=== PATIENT | male | born 1990 | race Caucasian/White ===

== ENCOUNTER 2016-04-06 19:34 | Emergency (ER) | payer SELFPAY ==
[~2016-04-06] VITALS: Ht 195.6 cm; Wt 81.6 kg
[~2016-04-06 19:34] MED LIST: CIPR500T78 PO; CPR500T PO; HYDR-1231 PO; HYDR1TAB PO; NAPR550T PO; ONDA8TAB13 PO; PHEN200T27 PO; PRM25T PO; TMSL.4C PO
--- OUTSIDE RECORDS SUMMARY | 2016-04-06 19:39 | XMS REPORT ---
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 Info Not Available Non Drug Allergy Problems Problem Type Condition Code Onset Dates Condition Status Problem Hematochezia 578.1 Active Problem Alcohol abuse 305.00 Active Problem Alcoholism F10.20 Active Assessment Alcoholism F10.20 Active Medications No Known Medications Procedures Procedure Coding System Code Date Office Visit, Est Pt., Level 3 CPT-4 30345 June 12, 2015 Vital Signs Date/Time: June 12, 2015 Temperature 96.9 F Weight 184.7 lbs Height 69.0 in BMI 27.27 Index Blood Pressure Diastolic 70 mmHg Blood Pressure Systolic 112 mmHg Cardiac Monitoring Heart Rate 88 bpm Results No Known Results Summary Purpose eClinicalWorks Submission
[2016-04-06] MEDS ORDERED: TRAM-42 PO (22:19)
[2016-04-06] MEDS ORDERED: RX-TRAMADOL 50 MG (ULTRAM) TAB PPK#4 PO STA (22:19)
[2016-04-06] MEDS ORDERED: NAPR500T3 PO (22:19)
[2016-04-06] MEDS ORDERED: RX-NAPROXEN (NAPROSYN) 250 MG TAB PPK#4 PO STA (22:19)
--- NOTE | 2016-04-06 22:19 | ED Lower Extremity ---
General Chief Complaint: Lower Extremity Stated Complaint: R BIG TOE INJ Nursing Triage Note: PT REPORTS KICKING TRUCK THIS AM AND NOW HAS PAIN AND SWELLING TO RIGHT FOOT. Nursing Sepsis Screen: No Definite Risk Source: patient History of Present Illness Time seen by provider: 21:40 Initial Comments C/O INJURY TO RIGHT GREAT TOE PT STATES HE GOT MAD AND KICKED THE DOOR OF A TRUCK TODAY--WEARING REGULAR BOOTS AT THE TIME--PT STATES HE IS A GROVRE NOW TOE IS RED, PAINFUL AND VERY SWOLLEN OCCURRED AT HOME AT 1430 TODAY STATES HE INJURED THIS TOE 5 YEARS AGO, --"RAN OVER IT" --BUT NEVER SOUGHT CARE. PT STATES THIS PAIN IS MUCH WORSE NO OTHER PROBLEMS WITH TOES TOOK "LEFTOVER" HYDROCODONE FROM PRIOR EPISODE OF KIDNEY STONE AROUND 1700 TODAY WITHOUT IMPROVEMENT IN PAIN PT STATES HE DRINKS A PINT TO A FIFTH OF LIQUOR EVERY DAY NO PCP Allergies and Home Medications Allergies Coded Allergies: No Known Drug Allergies (Unverified , 08/02/08) Home Medications Ciprofloxacin HCl 500 Mg Tablet #20 500 MG PO BID Prescribed by: MARQUISE LA on 09/06/13 1418 Hydrocodone Bit/Acetaminophen 1 Tab Tablet #14 1 TAB PO Q4H PRN PRN PAIN Prescribed by: MARQUISE LA on 09/06/13 1253 Naproxen 500 Mg Tablet #20 500 MG PO BID Prescribed by: CECY FOSTER on 04/06/162218 Phenazopyridine Hcl 200 Mg Tablet #15 1 EACH PO TID PRN PRN SPASMS Prescribed by: MARQUISE LA on 09/06/13 1253 Tamsulosin Hcl 0.4 Mg Cap #10 0.4 MG PO DAILY Prescribed by: MARQUISE LA on 09/06/13 1253 Tramadol HCl 50 Mg Tablet #20 50 MG PO Q4H Prescribed by: CECY FOSTER on 04/06/162218 Constitutional: no symptoms reported Musculoskeletal: see HPI Skin: no symptoms reported Psychiatric/Neurological: No Symptoms Reported Past Cxmipgc-Oanhic-Phgtuk Hx Patient Social History Alcohol Use: Regular Use (PINT TO A FIFTH OF HARD LIQUOR EVERY DAY) Recreational Drug Use: No Smoking Status: Current Everyday Smoker (1 PPD) Type Used: Cigarettes 2nd Hand Smoke Exposure: Yes Recent Foreign Travel: No Contact w/Someone Who Travel: No Recent Infectious Disease Expo: No Recent Hopitalizations: No Immunizations Up To Date Tetanus Booster (TDap): Less than 5yrs Surgeries HX Surgeries: Yes (BASKET RETRIEVAL FOR KIDNEY STONE) Surgeries: Renal Respiratory Hx Respiratory Disorders: No Cardiovascular Hx Cardiac Disorders: No Neurological Hx Neurological Disorders: No Reproductive System Hx Reproductive Disorders: No Sexually Transmitted Disease: No Genitourinary Hx Genitourinary Disorders: Yes Genitourinary Disorders: Kidney Stones Gastrointestinal Hx Gastrointestinal Disorders: No Musculoskeletal Hx Musculoskeletal Disorders: No Endocrine Hx Endocrine Disorders: No HEENT HX ENT Disorders: No Cancer Hx Cancer: No Psychosocial Hx Psychiatric Problems: No Integumentary HX Skin/Integumentary Disorder: No Blood Transfusions Hx Blood Disorders: No Physical Exam Vital Signs Vital Sign - Last 12Hours 04/06/16 21:37 Temp 98.1 Pulse 75 Resp 16 B/P 130/84 Pulse Ox 97 O2 Delivery Room Air Capillary Refill : Less Than 3 Seconds General Appearance: WD/WN other (TALKS NON-STOP AT LENGTH. + ODOR OF ALCOHOL. SPEECH CLEAR. GAIT STEADY) Ankles: right ankle non-tender, right ankle normal inspection, right ankle normal range of motion, right ankle no evidence of injury Feet: right foot other (MODERATE SWELLING AND ERYTHEMA TO RIGHT GREAT TOE. SEVERE TENDERNESS TO TOE. NO DEFORMITY. VERY LIMITED ROM DUE TO PAIN. SENSORY/ VASCULAR INTACT. SKIN IS INTACT. NAIL INTACT. ) Neurologic/Tendon: normal sensation Neurologic/Psychiatric: track helper II-XII nml as tested alert normal mood/affect oriented x 3 Skin: normal color warm/dry Splinting and Joint Reduction : Splints: Post Op Shoe (AND TOES 1 AND 2 CHRISTOPHER TAPED) Progress/Results/Core Measures Results/Orders My Orders Orders-CECY FOSTER DO Post-Op Shoe (04/06/16 22:13) Rx-Naproxen (Rx-Naprosyn) (04/06/16 22:19) Rx-Tramadol Hcl (Rx-Ultram) (04/06/16 22:19) Vital Signs/I&O Vital Sign - Last 12Hours 04/06/16 04/06/16 21:37 22:27 Temp 98.1 98.1 Pulse 75 75 Resp 16 16 B/P 130/84 Pulse Ox 97 97 O2 Delivery Room Air Blood Pressure Mean: 99 Diagnostic Imaging Comments XRAYS RIGHT FOOT--NO FRACTURE OR DISLOCATION OR ACUTE PROCESS, PENDING RADIOLOGIST REVIEW Reviewed: Reviewed by Me Departure Impression Impression: Primary Impression: Contusion of right great toe without damage to nail, initial encounter Disposition: 01 HOME, SELF-CARE Condition: Stable Departure-Patient Inst. Referrals: NO,LOCAL PHYSICIAN (PCP/Family) Primary Care Physician Patient Instructions: Contusion (DC), Toe Injury (DC) Add. Discharge Instructions: CHRISTOPHER TAPE TOES TOGETHER EVERY DAY AND WEAR POST OP SHOE NEEDED FOR COMFORT ICE TO SORE AREA AT 20 MINUTE INTERVALS ELEVATE FOOT MUCH POSSIBLE FOLLOW UP WITH DRCandy OF CHOICE IN 1 WEEK IF NO BETTER All discharge instructions reviewed with patient and/or family. Voiced understanding. Scripts Tramadol HCl (Ultram)50 Mg [id number] Mg PO Q4H #20 TAB Prov:CECY FOSTER DO 04/06/16 Naproxen 500 Mg [id number] Mg PO BID #20 TAB Prov:CECY FOSTER DO 04/06/16 CECY FOSTER DO Apr 06, 2016 22:19
[2016-04-06 22:27] VITALS: BP 130/84
--- NOTE | 2016-04-07 07:57 | Diagnostic Imaging Report ---
INDICATION: Great toe pain following kicking injury. FINDINGS: Arthritic changes to the first MTP with regional soft tissue swelling. A fracture or dislocation, however, is not identified. IMPRESSION: Degenerative changes to the first MTP. Regional soft tissue swelling, however, no fracture could be identified. Dictated by: Dictated on workstation # [id number]
== END 2016-04-06 22:25 | disposition home or self-care (01) ==
LOC: EDUNIT# 19:34 → ER 19:36
DX: S90.111A Contusion of right great toe without damage to nail, initial encounter (principal); M19.071 Primary osteoarthritis, right ankle and foot; F17.210 Nicotine dependence, cigarettes, uncomplicated; R10.10 Upper abdominal pain, unspecified; W22.09XA Striking against other stationary object, initial encounter; Y92.79 Other farm location as the place of occurrence of the external cause; Y99.8 Other external cause status
CPT/HCPCS: 73630; 99283

== ENCOUNTER 2017-11-10 13:49 | Inpatient (IN) | payer SELFPAY ==
[~2017-11-10] VITALS: Ht 195.6 cm; Wt 78.2 kg
[~2017-11-10 13:49] MED LIST changes: +NAPR-915 PO; +TRAM-42 PO
[2017-11-10] MEDS ORDERED: FAMOTIDINE 20 MG (PEPCID) TABLET PO STA (14:39)
--- NOTE | 2017-11-10 14:43 | ED Chest Pain ---
General Chief Complaint: Chest Pain Stated Complaint: HEART RACING;SOB;TINGLING IN HANDS Nursing Triage Note: TO ROOM 01 VIA AMB WITHOUT DIFFICULTY. COMPLAINS OF LEFT SIDED CHEST/ABD PAIN AND WEAKNESS STARTING YESTERDAY. STATES HE THINKS IT IS RELATED TO HIS ETOH DRIKING. Nursing Sepsis Screen: No Definite Risk Source: patient, spouse Exam Limitations: no limitations History of Present Illness Date Seen by Provider: Nov 10, 2017 Time Seen by Provider: 14:36 Initial Comments The patient presents to the ER by private conveyance with a chief complaint that he's been having some left-sided chest pain radiating down into his left upper quadrant abdomen and some over on his right side as well. This started last night around 9:00. He was just laying down in bed when it happened. He says he is an alcoholic and he drinks whiskey several times a day. His last drink was just prior to coming here. He said he went to the walk-in clinic and they told him they were concerned about possibilities of pancreatitis or other problems he should go to the ER to be checked out. He had to go get his kids and dropped off at the parents before coming to the ER however. He has no primary history of coronary disease or primary family history of early onset coronary disease. He's had a little nausea but no vomiting. He's had some chills but no sweats or fevers. He's having no shortness of breath. He smokes 2 packs of cigarettes per day and has a cough but nonproductive. His pain is worse when he takes a deep breath in. Allergies and Home Medications Allergies Coded Allergies: No Known Drug Allergies (Unverified , 08/02/08) Home Medications No Active Prescriptions or Reported Meds Patient Home Medication List Home Medication List Reviewed: Yes Review of Systems Review of Systems Constitutional: chills; No diaphoresis, No fever, No malaise EENTM: No Blurred Vision, No Double Vision Respiratory: Denies Cough, Denies Shortness of Air Cardiovascular: Chest Pain; Denies Edema; Palpitations; Denies Syncope Gastrointestinal: See HPI; Denies Abdomen Distended; Abdominal Pain; Denies Constipated, Denies Diarrhea; Nausea; Denies Vomiting Genitourinary: Denies Burning, Denies Discharge Musculoskeletal: No back pain, No joint pain Skin: No pruritus, No rash Psychiatric/Neurological: Denies Headache, Denies Numbness Past Ufnhpfo-Mvmhzd-Kncwvl Hx Patient Social History Alcohol Use: Regular Use Alcohol Beverage of Choice: Whiskey Recreational Drug Use: Yes Drug of Choice: POT Smoking Status: Current Everyday Smoker Type Used: Cigarettes 2nd Hand Smoke Exposure: Yes Recent Foreign Travel: No Contact w/Someone Who Travel: No Recent Infectious Disease Expo: No Recent Hopitalizations: No Immunizations Up To Date Tetanus Booster (TDap): Less than 5yrs Past Medical History Surgeries: Yes (BASKET RETRIEVAL FOR KIDNEY STONE) Renal Respiratory: No Cardiac: No Neurological: No Reproductive Disorders: No Sexually Transmitted Disease: No Kidney Stones Gastrointestinal: No Musculoskeletal: No Endocrine: No Cancer: No Psychosocial: No Integumentary: No Blood Disorders: No Physical Exam Vital Signs Vital Signs - First Documented 11/10/17 13:50 Temp 98.0 Pulse 102 Resp 16 B/P (MAP) 138/98 (111) Pulse Ox 99 O2 Delivery Room Air Capillary Refill : Less Than 3 Seconds Height, Weight, BMI Height: 6'2.00" Weight: 180lbs. oz. 81.136397uh; 20.51 BMI Method:Stated General Appearance: No Apparent Distress, WD/WN HEENT: PERRL/EOMI, Normal ENT Inspection, Pharynx Normal Neck: Full Range of Motion, Normal Inspection, Non Tender, Supple Respiratory: Chest Non Tender, Lungs Clear, Normal Breath Sounds, No Accessory Muscle Use, No Respiratory Distress Cardiovascular: Regular Rate, Rhythm, No Edema, No Gallop, Normal Peripheral Pulses Gastrointestinal: Normal Bowel Sounds, Non Tender, Soft Extremity: Normal Capillary Refill, Normal Inspection, Normal Range of Motion, Non Tender, No Calf Tenderness, No Pedal Edema Neurologic/Psychiatric: Alert, Oriented x3 Skin: Normal Color, Warm/Dry Progress/Results/Core Measures Results/Orders Lab Results Laboratory Tests Test 11/10/17 14:55 Range/Units White Blood Count 5.8 4.3-11.0 10^3/uL Red Blood Count 4.89 4.35-5.85 10^6/uL Hemoglobin 15.9 13.3-17.7 G/DL Hematocrit 46 40-54 % Mean Corpuscular Volume 95 80-99 FL Mean Corpuscular Hemoglobin 33 25-34 PG Mean Corpuscular Hemoglobin Concent 34 32-36 G/DL Red Cell Distribution Width 13.2 10.0-14.5 % Platelet Count 173 130-400 10^3/uL Mean Platelet Volume 11.4 H 7.4-10.4 FL Neutrophils (%) (Auto) 49 42-75 % Lymphocytes (%) (Auto) 33 12-44 % Monocytes (%) (Auto) 15 H 0-12 % Eosinophils (%) (Auto) 3 0-10 % Basophils (%) (Auto) 0 0-10 % Neutrophils # (Auto) 2.8 1.8-7.8 X 10^3 Lymphocytes # (Auto) 1.9 1.0-4.0 X 10^3 Monocytes # (Auto) 0.9 0.0-1.0 X 10^3 Eosinophils # (Auto) 0.2 0.0-0.3 10^3/uL Basophils # (Auto) 0.0 0.0-0.1 10^3/uL Prothrombin Time 12.7 12.2-14.7 SEC INR Comment 1.0 0.8-1.4 Activated Partial Thromboplast Time 25 24-35 SEC Sodium Level 141 135-145 MMOL/L Potassium Level 3.8 3.6-5.0 MMOL/L Chloride Level 105 98-107 MMOL/L Carbon Dioxide Level 22 21-32 MMOL/L Anion Gap 14 5-14 MMOL/L Blood Urea Nitrogen 7 7-18 MG/DL Creatinine 0.82 0.60-1.30 MG/DL Estimat Glomerular Filtration Rate > 60 BUN/Creatinine Ratio 9 Glucose Level 114 H 70-105 MG/DL Calcium Level 10.1 8.5-10.1 MG/DL Corrected Calcium 8.5-10.1 MG/DL Magnesium Level 2.2 1.8-2.4 MG/DL Total Bilirubin 2.0 H 0.1-1.0 MG/DL Aspartate Amino Transf (AST/SGOT) 94 H 5-34 U/L Alanine Aminotransferase (ALT/SGPT) 171 H 0-55 U/L Alkaline Phosphatase 79 40-136 U/L Myoglobin 25.8 10.0-92.0 NG/ML Troponin I < 0.30 <0.30 NG/ML Total Protein 7.4 6.4-8.2 GM/DL Albumin 4.7 H 3.2-4.5 GM/DL Lipase 80 H 8-78 U/L Serum Alcohol 151 H <10 MG/DL My Orders Orders - FERNANDA GORE Ekg Tracing (11/10/17 13:57) Cbc With Automated Diff (11/10/17 14:39) Magnesium (11/10/17 14:39) Cardiac Profile 1 (11/10/17 14:39) Comprehensive Metabolic Panel (11/10/17 14:39) Myoglobin Serum (11/10/17 14:39) Protime With Inr (11/10/17 14:39) Partial Thromboplastin Time (11/10/17 14:39) Monitor-Rhythm Ecg Trace Only (11/10/17 14:39) Lipid Panel (11/11/17 06:00) Aspirin Chewable Tablet (Baby Aspirin Ch (11/10/17 14:45) Saline Lock/Iv-Start (11/10/17 14:39) Lipase (11/10/17 14:39) Lidocaine 2% Viscous 15 Ml (Xylocaine Vi (11/10/17 14:45) Famotidine Tablet (Pepcid Tablet) (11/10/17 14:39) Antacid Suspension (Mylanta Suspension (11/10/17 14:45) Chest Pa/Lat (2 View) (11/10/17 14:44) Thiamine Tablet (Vitamin B-1 Tablet) (11/10/17 15:15) Folic Acid Tablet (Folic Acid Tablet) (11/10/17 15:15) Alcohol (11/10/17 16:09) Pantoprazole Injection (Protonix Injecti (11/10/17 16:15) Medications Given in ED Current Medications Medications Dose Ordered Sig/Darline Route Start Time Stop Time Status Last Admin Dose Admin Al Hydrox/Mg Hydrox/Simethicone 30 ml ONCE ONCE PO 11/10/17 14:45 11/10/17 14:46 DC 11/10/17 15:24 30 ML Aspirin 324 mg ONCE ONCE PO 11/10/17 14:45 11/10/17 14:46 DC 11/10/17 15:23 324 MG Folic Acid 1 mg ONCE ONCE PO 11/10/17 15:15 11/10/17 15:16 DC 11/10/17 15:49 1 MG Lidocaine HCl 15 ml ONCE ONCE PO 11/10/17 14:45 11/10/17 14:46 DC 11/10/17 15:24 15 ML Pantoprazole 40 mg ONCE ONCE IV 11/10/17 16:15 11/10/17 16:17 DC 11/10/17 16:54 40 MG Thiamine HCl 100 mg ONCE ONCE PO 11/10/17 15:15 11/10/17 15:16 DC 11/10/17 15:49 100 MG Vital Signs/I&O 11/10/17 11/10/17 13:50 15:47 Temp 98.0 98.4 Pulse 102 97 Resp 16 18 B/P (MAP) 138/98 (111) 92/52 Pulse Ox 99 94 O2 Delivery Room Air Room Air Blood Pressure Mean: 111 Progress Progress Note : Time: 15:19 Progress Note Patient is decisional. He is wanting help with why he is having chest pain but not interested in quitting drinking at this time. Differential includes pleuritic chest pain versus pancreatitis versus cardiac versus pneumonia versus bronchitis and probably complicated by his anxiety. We'll encourage him to reduce smoking and drinking. Him a GI cocktail, aspirin he's refused any nitroglycerin. We talked him into some thiamine and folate. The chest x-ray 2 views. Cardiac is fairly low on the list. He has no hemoptysis, shortness of breath, decreased sats or pain in the calves to make us think about a DVT or pulmonary embolism as source of his pain. Initial ECG Impression Date: Nov 10, 2017 Initial ECG Impression Time: 13:57 Initial ECG Rate: 83 Initial ECG Rhythm: Normal Sinus Initial ECG Intervals: Normal Initial ECG Impression: Normal, Nonspecific Changes Initial ECG Comparisson: No Previous ECG Available Comment No ST elevation or depression. Diagnostic Imaging Diagonstic Imaging: Xray Plain Films/CT/US/NM/MRI: chest Comments Unremarkable 2 view chest without any acute cardiopulmonary processes noted. [facility] [place], [place] NAME: LETICIA HOLLEY [facility] REC#: [id number] PT STATUS: REG ER : 1990 PHYSICIAN: FERNANDA GORE MD ADMIT DATE: 11/10/17/ER Draft Date of Exam:11/10/17 CHEST PA/LAT (2 VIEW) EXAMINATION: PA and lateral chest at 03:41 p.m. INDICATION: Left-sided chest pain. FINDINGS: There are no prior studies available for comparison. The heart size is within normal limits. The lungs are clear. There is no evidence for failure, pneumonia, or for a pleural effusion. There is no pneumothorax evident. Mediastinum is not widened. The osseous structures are intact. IMPRESSION: There is no evidence for an acute cardiopulmonary abnormality. Dictated on workstation # [id number] Dict: 11/10/17 1527 Trans: 11/10/17 1530 [id number] Interpreted by: ANKIT CLEMENTE MD Electronically signed by: Reviewed: Reviewed by Me Departure Communication (Admissions) Time/Spoke to Admitting Phy: 17:31 Discussed the case lab and findings with Dr. Ryan she agrees take the patient for alcohol withdrawal and pancreatitis. Impression Primary Impression: Pancreatitis Qualified Codes: K85.20 - Alcohol induced acute pancreatitis without necrosis or infection Additional Impression: Alcohol withdrawal Qualified Codes: F10.230 - Alcohol dependence with withdrawal, uncomplicated Disposition: ADMITTED INPATIENT Condition: Stable Admissions Decision to Admit Reason: Admit from ER (General) Decision to Admit/Date: Nov 10, 2017 Time/Decision to Admit Time: 17:30 Departure-Patient Inst. Referrals: NO,LOCAL PHYSICIAN (PCP/Family) Primary Care Physician Scripts No Active Prescriptions or Reported Meds Copy Copies To 1: MAURY WATERS TITUS J Nov 10, 2017 14:43
[2017-11-10] MEDS ORDERED: ANTACID SUSP 30 ML UDC (MYLANTA) PO ONE (14:45)
[2017-11-10] MEDS ORDERED: ASPIRIN 81 MG CHEW (CHILDREN'S ASA) PO ONE (14:45)
[2017-11-10] MEDS ORDERED: LIDOCAINE 2% VISCOUS 15 ML UDC PO ONE (14:45)
[2017-11-10 15:04] LABS: BASOPHILS % (AUTO) 0 % (0-10); EOSINOPHILS # (AUTO) 0.2 10^3/uL (0.0-0.3); EOSINOPHILS % (AUTO) 3 % (0-10); HEMATOCRIT 46 % (40-54); HEMOGLOBIN 15.9 G/DL (13.3-17.7); LYMPHOCYTES # (AUTO) 1.9 X 10^3 (1.0-4.0); LYMPHOCYTES % (AUTO) 33 % (12-44); MEAN CORPUSCULAR HEMOGLOBIN 33 PG (25-34); MEAN CORPUSCULAR HGB CONC 34 G/DL (32-36); MEAN CORPUSCULAR VOLUME 95 FL (80-99); MEAN PLATELET VOLUME 11.4 FL (7.4-10.4); MONOCYTES # (AUTO) 0.9 X 10^3 (0.0-1.0); MONOCYTES % (AUTO) 15 % (0-12); NEUTROPHILS # (AUTO) 2.8 X 10^3 (1.8-7.8); NEUTROPHILS % (AUTO) 49 % (42-75); PLATELET COUNT 173 10^3/uL (130-400); RED BLOOD COUNT 4.89 10^6/uL (4.35-5.85); RED CELL DISTRIBUTION WIDTH 13.2 % (10.0-14.5); WHITE BLOOD COUNT 5.8 10^3/uL (4.3-11.0)
[2017-11-10] MEDS ORDERED: FOLIC ACID 1 MG TAB PO ONE (15:15)
[2017-11-10] MEDS ORDERED: THIAMINE 100 MG (VITAMIN B-1) TAB PO ONE (15:15)
[2017-11-10 15:17] LABS: PROTHROMBIN TIME PATIENT 12.7 SEC (12.2-14.7)
[2017-11-10 15:23] LABS: ALANINE AMINOTRANSFERASE 171 U/L (0-55); ALBUMIN 4.7 GM/DL (3.2-4.5); ALKALINE PHOSPHATASE 79 U/L (40-136); BUN/CREATININE RATIO 9; CALCIUM 10.1 MG/DL (8.5-10.1); CARBON DIOXIDE 22 MMOL/L (21-32); CHLORIDE 105 MMOL/L (98-107); CREATININE SERUM 0.82 MG/DL (0.60-1.30); GFR ESTIMATED > 60; GLUCOSE 114 MG/DL (70-105); LIPASE 80 U/L (8-78); MAGNESIUM 2.2 MG/DL (1.8-2.4); POTASSIUM 3.8 MMOL/L (3.6-5.0); SODIUM 141 MMOL/L (135-145); TOTAL PROTEIN 7.4 GM/DL (6.4-8.2)
[2017-11-10 15:30] LABS: MYOGLOBIN SERUM 25.8 NG/ML (10.0-92.0)
--- NOTE | 2017-11-10 15:30 | Diagnostic Imaging Report ---
EXAMINATION: PA and lateral chest at 03:41 p.m. INDICATION: Left-sided chest pain. FINDINGS: There are no prior studies available for comparison. The heart size is within normal limits. The lungs are clear. There is no evidence for failure, pneumonia, or for a pleural effusion. There is no pneumothorax evident. Mediastinum is not widened. The osseous structures are intact. IMPRESSION: There is no evidence for an acute cardiopulmonary abnormality. Dictated by: Dictated on workstation # [id number]
[2017-11-10] MEDS ORDERED: PANTOPRAZOLE 40 MG (PROTONIX) VIAL IV ONE (16:15)
[2017-11-10] MEDS ORDERED: 1/2 NS IV SOLUTION 1,000 ML IV PRN (17:14)
[2017-11-10] MEDS ORDERED: D5 1/2 NS 1000 ML IV SOLUTION 1,000 ML IV PRN (17:15)
[2017-11-10] MEDS ORDERED: LORazepam INJ 2 MG/ML (ATIVAN) VIAL IV PRN (17:15)
[2017-11-10] MEDS ORDERED: CATHETER FLUSH 10 ML SYR IV PRN (17:15)
[2017-11-10] MEDS ORDERED: ONDANSETRON 4 MG (ZOFRAN) ORAL DISSOLVE TAB SL PRN (17:15)
[2017-11-10] MEDS ORDERED: LORazepam 1 MG (ATIVAN) TAB PO PRN (17:15)
[2017-11-10] MEDS ORDERED: fentaNYL INJECTION 100 MCG/2 ML AMP IV PRN ×2 (17:15)
[2017-11-10] MEDS ORDERED: ANTACID SUSP 30 ML UDC (MYLANTA) PO PRN (17:15)
[2017-11-10] MEDS ORDERED: LORazepam INJ 2 MG/ML (ATIVAN) VIAL IM/IV PRN (17:15)
[2017-11-10] MEDS ORDERED: SENNA W/DOCUSATE (SENOKOT S) TABLET PO PRN (17:15)
[2017-11-10] MEDS ORDERED: ONDANSETRON 4 MG/2 ML (SDV) Z0FRAN IV PRN ×2 (17:15)
[2017-11-10 17:48] VITALS: BP 134/89
[2017-11-10] MEDS: NICOTINE 21 MG (NICODERM) PATCH TD SCH (17:57)
[2017-11-10] MEDS: THIAMINE INJECTION 100 MG, FOLIC ACID INJECTION 1 MG, MAGNESIUM SULFATE 2 GM, VITAMIN M... IV SCH ×5 (17:57)
[2017-11-10 18:05] LABS: INR 0.9 (0.8-1.4); PROTHROMBIN TIME PATIENT 12.1 SEC (12.2-14.7)
[2017-11-10] MEDS: D5 1/2 NS W/KCL 20 MEQ/L 1,000 ML IV SCH (18:24)
[2017-11-10] MEDS: PANTOPRAZOLE 40 MG (PROTONIX) VIAL IV SCH (20:31)
[2017-11-10 20:37] VITALS: BP 139/90
[2017-11-11] VITALS: BP 124/79
[2017-11-11] MEDS: D5 1/2 NS W/KCL 20 MEQ/L 1,000 ML IV SCH ×4 (00:49→21:43)
[2017-11-11 04:00] VITALS: BP 127/74
[2017-11-11 05:38] LABS: BASOPHILS % (AUTO) 0 % (0-10); EOSINOPHILS # (AUTO) 0.2 10^3/uL (0.0-0.3); EOSINOPHILS % (AUTO) 4 % (0-10); HEMATOCRIT 44 % (40-54); HEMOGLOBIN 15.2 G/DL (13.3-17.7); LYMPHOCYTES # (AUTO) 1.6 X 10^3 (1.0-4.0); LYMPHOCYTES % (AUTO) 34 % (12-44); MEAN CORPUSCULAR HEMOGLOBIN 33 PG (25-34); MEAN CORPUSCULAR HGB CONC 34 G/DL (32-36); MEAN CORPUSCULAR VOLUME 96 FL (80-99); MEAN PLATELET VOLUME 11.3 FL (7.4-10.4); MONOCYTES # (AUTO) 0.6 X 10^3 (0.0-1.0); MONOCYTES % (AUTO) 12 % (0-12); NEUTROPHILS # (AUTO) 2.3 X 10^3 (1.8-7.8); NEUTROPHILS % (AUTO) 49 % (42-75); PLATELET COUNT 170 10^3/uL (130-400); RED BLOOD COUNT 4.65 10^6/uL (4.35-5.85); WHITE BLOOD COUNT 4.6 10^3/uL (4.3-11.0)
[2017-11-11 05:59] LABS: ALANINE AMINOTRANSFERASE 141 U/L (0-55); ALBUMIN 4.1 GM/DL (3.2-4.5); ALKALINE PHOSPHATASE 67 U/L (40-136); BILIRUBIN,TOTAL 1.5 MG/DL (0.1-1.0); BUN/CREATININE RATIO 9; CALCIUM 9.1 MG/DL (8.5-10.1); CARBON DIOXIDE 26 MMOL/L (21-32); CHLORIDE 105 MMOL/L (98-107); CHOLESTEROL 121 MG/DL (< 200); CREATININE SERUM 0.85 MG/DL (0.60-1.30); GFR ESTIMATED > 60; GLUCOSE 127 MG/DL (70-105); HDL CHOLESTEROL 50 MG/DL (40-60); POTASSIUM 3.6 MMOL/L (3.6-5.0); SODIUM 140 MMOL/L (135-145); TOTAL PROTEIN 6.5 GM/DL (6.4-8.2); TRIGLYCERIDES 54 MG/DL (<150); VLDL CHOLESTEROL 11 MG/DL (5-40)
[2017-11-11] MEDS: NICOTINE 21 MG (NICODERM) PATCH TD SCH (08:56)
[2017-11-11 08:57] VITALS: BP 137/86
[2017-11-11] MEDS: THIAMINE INJECTION 100 MG, FOLIC ACID INJECTION 1 MG, MAGNESIUM SULFATE 2 GM, VITAMIN M... IV SCH ×5 (08:57)
[2017-11-11] MEDS: PANTOPRAZOLE 40 MG (PROTONIX) VIAL IV SCH (08:57)
[2017-11-11] MEDS: NICOTINE PATCH REMOVAL TP SCH (08:57)
[2017-11-11] MEDS ORDERED: ACET-2267 PO (09:01)
[2017-11-11 12:00] VITALS: BP 135/91
--- NOTE | 2017-11-11 15:33 | History & Physicial ([facility]) ---
LINDA SLOAN MEDICAL STUDENT 11/11/17 1533: HPI History of Present Illness: 26 yo white male presented to the ED last night left sided chest pain radiating to his LUQ and RUQ x 2 days. Pt states he was nauseous and found it painful to take deep breaths. This morning, he rates his chest/abdominal pain as a 7 out of 10. He is a chronic alcoholic and would like help detoxing. Pt's last drink was 11am yesterday. He has never been in an alcohol treatment program before. However, he has been in a drug treatment program as a teenager for use of meth, cocaine, marijuana, and mushrooms. Pt is urinating fine and has not yet had a bowel movement. Source: patient Exam Limitations: no limitations Date seen by provider: Nov 11, 2017 Time Seen by Provider: 10:15 Attending Physician Claudette Jessica MD PCP No,Local Physician Consult Date of Admission Nov 10, 2017 at 16:20 Home Medications Home Medications Reviewed patient Home Medication Reconciliation performed by pharmacy medication reconciliations infrastructure technician and/or nursing. Patients Allergies have been reviewed. 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 2 ppd) Type Used: Cigarettes 2nd Hand Smoke Exposure: Yes Recent Foreign Travel: No Contact w/other who traveled: No Recent Hopitalizations: No Recent Infectious Disease Expo: No Physical Abuse Screen: No Sexual Abuse: No Immunizations Up To Date Tetanus Booster (TDap): Less than 5yrs Past Medical History Kidney stone requiring surgical removal Heart murmur at Lung collapse at Family Medical History Family History: Patient reports no known family medical history. Review of Systems ([facility]) Constitutional: see HPI Respiratory: no symptoms reported Cardiovascular: chest pain (radiating to LUQ) Gastrointestinal: abdominal pain (LUQ, RUQ); No nausea, No vomiting Reviewed Test Results Reviewed Test Results Lab Laboratory Tests Test 11/10/17 14:55 11/10/17 17:45 11/11/17 05:20 Range/Units White Blood Count 5.8 4.6 4.3-11.0 10^3/uL Red Blood Count 4.89 4.65 4.35-5.85 10^6/uL Hemoglobin 15.9 15.2 13.3-17.7 G/DL Hematocrit 46 44 40-54 % Mean Corpuscular Volume 95 96 80-99 FL Mean Corpuscular Hemoglobin 33 33 25-34 PG Mean Corpuscular Hemoglobin Concent 34 34 32-36 G/DL Red Cell Distribution Width 13.2 13.0 10.0-14.5 % Platelet Count 173 170 130-400 10^3/uL Mean Platelet Volume 11.4 H 11.3 H 7.4-10.4 FL Neutrophils (%) (Auto) 49 49 42-75 % Lymphocytes (%) (Auto) 33 34 12-44 % Monocytes (%) (Auto) 15 H 12 0-12 % Eosinophils (%) (Auto) 3 4 0-10 % Basophils (%) (Auto) 0 0 0-10 % Neutrophils # (Auto) 2.8 2.3 1.8-7.8 X 10^3 Lymphocytes # (Auto) 1.9 1.6 1.0-4.0 X 10^3 Monocytes # (Auto) 0.9 0.6 0.0-1.0 X 10^3 Eosinophils # (Auto) 0.2 0.2 0.0-0.3 10^3/uL Basophils # (Auto) 0.0 0.0 0.0-0.1 10^3/uL Prothrombin Time 12.7 12.1 L 12.2-14.7 SEC INR Comment 1.0 0.9 0.8-1.4 Activated Partial Thromboplast Time 25 24 24-35 SEC Sodium Level 141 140 135-145 MMOL/L Potassium Level 3.8 3.6 3.6-5.0 MMOL/L Chloride Level 105 105 98-107 MMOL/L Carbon Dioxide Level 22 26 21-32 MMOL/L Anion Gap 14 9 5-14 MMOL/L Blood Urea Nitrogen 7 8 7-18 MG/DL Creatinine 0.82 0.85 0.60-1.30 MG/DL Estimat Glomerular Filtration Rate > 60 > 60 BUN/Creatinine Ratio 9 9 Glucose Level 114 H 127 H 70-105 MG/DL Calcium Level 10.1 9.1 8.5-10.1 MG/DL Corrected Calcium 9.0 8.5-10.1 MG/DL Magnesium Level 2.2 1.8-2.4 MG/DL Total Bilirubin 2.0 H 1.5 H 0.1-1.0 MG/DL Aspartate Amino Transf (AST/SGOT) 94 H 70 H 5-34 U/L Alanine Aminotransferase (ALT/SGPT) 171 H 141 H 0-55 U/L Alkaline Phosphatase 79 67 40-136 U/L Myoglobin 25.8 10.0-92.0 NG/ML Troponin I < 0.30 <0.30 NG/ML Total Protein 7.4 6.5 6.4-8.2 GM/DL Albumin 4.7 H 4.1 3.2-4.5 GM/DL Lipase 80 H 8-78 U/L Serum Alcohol 151 H <10 MG/DL Triglycerides Level 54 <150 MG/DL Cholesterol Level 121 < 200 MG/DL LDL Cholesterol Direct 57 1-129 MG/DL VLDL Cholesterol 11 5-40 MG/DL HDL Cholesterol 50 40-60 MG/DL Radiology Chest Xray showed no acute cardiopulmonary abnormalities. EKG showed sinus rhythm. Physical Exam-([facility]) Physical Exam Vital Signs VS - Last 72 Hours, by Label 11/10/17 11/10/17 11/10/17 11/10/17 13:50 17:00 17:48 18:32 Temp 98.0 98.5 Pulse 102 96 112 Resp 16 16 18 B/P (MAP) 138/98 (111) 127/88 134/89 (104) Pulse Ox 99 98 96 96 O2 Delivery Room Air Room Air Room Air Room Air 11/10/17 11/10/17 11/11/17 11/11/17 19:00 20:37 00:00 01:00 Temp 99.6 98.5 Pulse 114 100 80 72 Resp 16 20 B/P (MAP) 139/90 (106) 124/79 (94) Pulse Ox 98 99 O2 Delivery Room Air Room Air 11/11/17 11/11/17 11/11/17 11/11/17 04:00 07:00 08:57 12:00 Temp 97.1 98.4 98.5 Pulse 72 69 73 79 Resp 20 20 18 B/P (MAP) 127/74 (91) 137/86 (103) 135/91 (106) Pulse Ox 98 99 97 O2 Delivery Room Air Room Air Room Air 11/11/17 13:00 Pulse 78 Capillary Refill : Less Than 3 Seconds Temperature (Fahrenheit): 97.1 General Appearance: no apparent distress Respiratory: lungs clear, normal breath sounds Cardiovascular: regular rate, rhythm, no gallop, no murmur Gastrointestinal: normal bowel sounds, soft, tenderness (to palpation LUQ, epigastric region) Neurologic/Psychiatric: oriented x 3 Skin: normal color Assessment/Plan Assessment/Plan Admission Dx Acute Pancreatitis Admission Status: Inpatient Order (span 2 midnights) Reason for Inpatient Admission: Acute Pancreatitis Assessment & Plan 1. Acute Pancreatitis, Mild Pt's lipase level yesterday was mildly elevated at 80 yesterday. However, it could have been higher because the patient had these symptoms for a full day before coming in the next afternoon. Consider ordering abdominal ultrasound to visualize pancreas. 2. Chronic Alcoholism Liver enzymes are already improved since yesterday on admission. Hepatitis panel and continue fluids. Pt agrees to stay one more day inpatient to monitor for alcohol withdrawal symptoms, seeing as he still drank yesterday morning. Pt wants outpatient treatment rather than inpatient treatment because he has three girls he needs to help take care of. Tomorrow, will discharge pt and enroll him in outpatient treatment in the ATS program with Dr. Grimm at [facility]. Clinical Quality Measures AMI/AHF: ASA po Prior to arrival: No DVT/VTE Risk/Contraindication: Risk Factor Score Per Nursin RFS Level Per Nursing on Admit: 1=Low/No VTE PPX CLAUDETTE JESSICA MD 11/11/17 2103: Home Medications Allergies Coded Allergies: No Known Drug Allergies (Unverified , 08/02/08) MEB-[id number]-Geggrv Hx Family Medical History Family History: Patient reports no known family medical history. Supervisory-Addendum Brief Supervisory Addendum Patient interviewed and examined with MS3 Linda Sloan, agree with documentation unless otherwise noted. Due to mild nature of symptoms and labs improving, will defer on abdominal imaging for now. Check hepatitis panel. Anticipate likely d/ c tomorrow for outpatient rehab. LINDA SLOAN MEDICAL STUDENT Nov 11, 2017 15:33 CLAUDETTE JESSICA MD Nov 11, 2017 21:03
[2017-11-11 16:56] VITALS: BP 128/81
[2017-11-11 19:30] VITALS: BP 133/87
[2017-11-11] MEDS: PANTOPRAZOLE 40 MG (PROTONIX) TAB PO SCH (20:40)
[2017-11-12 00:08] VITALS: BP 119/76
[2017-11-12] MEDS: D5 1/2 NS W/KCL 20 MEQ/L 1,000 ML IV SCH ×2 (03:56→09:30)
[2017-11-12 04:18] VITALS: BP 115/66
[2017-11-12 06:23] LABS: HEMOGLOBIN 14.7 G/DL (13.3-17.7); MEAN PLATELET VOLUME 11.7 FL (7.4-10.4); RED BLOOD COUNT 4.54 10^6/uL (4.35-5.85); RED CELL DISTRIBUTION WIDTH 12.8 % (10.0-14.5); WHITE BLOOD COUNT 4.9 10^3/uL (4.3-11.0)
[2017-11-12 07:06] LABS: ALANINE AMINOTRANSFERASE 112 U/L (0-55); ALKALINE PHOSPHATASE 64 U/L (40-136); BILIRUBIN,TOTAL 2.1 MG/DL (0.1-1.0); BUN/CREATININE RATIO 11; CALCIUM 9.3 MG/DL (8.5-10.1); CARBON DIOXIDE 22 MMOL/L (21-32); CHLORIDE 104 MMOL/L (98-107); CREATININE SERUM 0.79 MG/DL (0.60-1.30); GFR ESTIMATED > 60; GLUCOSE 111 MG/DL (70-105); POTASSIUM 4.2 MMOL/L (3.6-5.0); SODIUM 138 MMOL/L (135-145); TOTAL PROTEIN 6.2 GM/DL (6.4-8.2)
[2017-11-12 07:52] LABS: HEPATITIS C ANTIBODY C Non-Reactive (Non-Reactive)
[2017-11-12 08:00] VITALS: BP 140/63
[2017-11-12] MEDS: PANTOPRAZOLE 40 MG (PROTONIX) TAB PO SCH (08:58)
[2017-11-12] MEDS: THIAMINE INJECTION 100 MG, FOLIC ACID INJECTION 1 MG, MAGNESIUM SULFATE 2 GM, VITAMIN M... IV SCH ×5 (08:59)
[2017-11-12] MEDS: NICOTINE 21 MG (NICODERM) PATCH TD SCH (08:59)
[2017-11-12] MEDS: NICOTINE PATCH REMOVAL TP SCH (08:59)
--- NOTE | 2017-11-12 11:38 | Discharge Instructions ---
Discharge [facility] Discharge Medications Discontinued Medications: Acetaminophen (Tylenol Extra Strength) 500 Mg Tablet 500-1000 MG PO Q6H PRN for PAIN-MILD, TAB Patient Instructions Goal/Follow Up Appt: Follow up for intake visit for ATS at [facility] on 11/16. Follow up with Dr. Holley at [facility] for medical followup on 11/16 at 12:20 pm. Return to The Hospital For: Severe abdominal pain, inability to keep down liquids. Activity & Diet Discharge Diet: Eat Small Frequent Meals Activity as Tolerated: Yes Orders-Post D/C & Referrals Pneu Vac Indicated: Yes Copy Copies To 1: MITCH HOLLEY MD,CLAUDETTE Bustos MD Nov 12, 2017 11:38
[2017-11-12] MEDS ORDERED: FUROSEMIDE 40 MG/4 ML INJ (LASIX) ONE (11:40)
--- NOTE | 2017-11-12 11:45 | Discharge Summary ---
LINDA BONDS MEDICAL STUDENT 11/12/17 1145: Diagnosis/Chief Complaint Date of Admission Nov 10, 2017 at 16:20 Date of Discharge Nov 12, 2017 Admission Diagnosis Admission Diagnosis Acute Pancreatitis Discharge Diagnosis 1. Acute Pancreatitis, Mild Resolved. 2. Chronic Alcoholism Liver enzymes have improved since yesterday. Hepatitis panel was negative. Discharge pt and enroll him in outpatient treatment in the ATS program with Dr. Grimm at [facility]. Chief Complaint/HPI Chief Complaint/HPI Pt had no alcohol withdrawal symptoms overnight or this morning. He reports feeling much better. Pt denies tremors, sweats, nausea. Pt's denies abdominal and chest pain overnight and today. Discharge Summary-Simple/Stand Procedures EKG showed sinus rhythm. Consultations Discharge Physical Examination Allergies: Coded Allergies: No Known Drug Allergies (Unverified , 08/02/08) Vitals & I&Os Vital Sign - Last 12Hours Date Time Temp Pulse Resp B/P (MAP) Pulse Ox O2 Delivery O2 Flow Rate FiO2 11/12/17 08:00 97 Room Air 11/12/17 08:00 96.5 97 21 140/63 (88) Intake and Output 11/11/17 23:59 Intake Total 2420 ml Balance 2420 ml General Appearance: Alert, Oriented X3, Cooperative Respiratory: Clear to Auscultation, Normal Air Movement Cardiovascular: Regular Rate, No Murmurs Abdominal: Normal Bowel Sounds Neuro: Normal Speech Psych/Mental Status: Mental Status NL Hospital Course See final discharge diagnosis. Labs Laboratory Tests Test 11/10/17 14:55 11/10/17 17:45 11/11/17 05:20 11/12/17 05:59 Range/Units White Blood Count 5.8 4.6 4.9 4.3-11.0 10^3/uL Red Blood Count 4.89 4.65 4.54 4.35-5.85 10^6/uL Hemoglobin 15.9 15.2 14.7 13.3-17.7 G/DL Hematocrit 46 44 44 40-54 % Mean Corpuscular Volume 95 96 96 80-99 FL Mean Corpuscular Hemoglobin 33 33 32 25-34 PG Mean Corpuscular Hemoglobin Concent 34 34 34 32-36 G/DL Red Cell Distribution Width 13.2 13.0 12.8 10.0-14.5 % Platelet Count 173 170 157 130-400 10^3/uL Mean Platelet Volume 11.4 H 11.3 H 11.7 H 7.4-10.4 FL Neutrophils (%) (Auto) 49 49 42-75 % Lymphocytes (%) (Auto) 33 34 12-44 % Monocytes (%) (Auto) 15 H 12 0-12 % Eosinophils (%) (Auto) 3 4 0-10 % Basophils (%) (Auto) 0 0 0-10 % Neutrophils # (Auto) 2.8 2.3 1.8-7.8 X 10^3 Lymphocytes # (Auto) 1.9 1.6 1.0-4.0 X 10^3 Monocytes # (Auto) 0.9 0.6 0.0-1.0 X 10^3 Eosinophils # (Auto) 0.2 0.2 0.0-0.3 10^3/uL Basophils # (Auto) 0.0 0.0 0.0-0.1 10^3/uL Prothrombin Time 12.7 12.1 L 12.2-14.7 SEC INR Comment 1.0 0.9 0.8-1.4 Activated Partial Thromboplast Time 25 24 24-35 SEC Sodium Level 141 140 138 135-145 MMOL/L Potassium Level 3.8 3.6 4.2 3.6-5.0 MMOL/L Chloride Level 105 105 104 98-107 MMOL/L Carbon Dioxide Level 22 26 22 21-32 MMOL/L Anion Gap 14 9 12 5-14 MMOL/L Blood Urea Nitrogen 7 8 9 7-18 MG/DL Creatinine 0.82 0.85 0.79 0.60-1.30 MG/DL Estimat Glomerular Filtration Rate > 60 > 60 > 60 BUN/Creatinine Ratio 9 9 11 Glucose Level 114 H 127 H 111 H 70-105 MG/DL Calcium Level 10.1 9.1 9.3 8.5-10.1 MG/DL Corrected Calcium 9.0 9.3 8.5-10.1 MG/DL Magnesium Level 2.2 1.8-2.4 MG/DL Total Bilirubin 2.0 H 1.5 H 2.1 H 0.1-1.0 MG/DL Aspartate Amino Transf (AST/SGOT) 94 H 70 H 52 H 5-34 U/L Alanine Aminotransferase (ALT/SGPT) 171 H 141 H 112 H 0-55 U/L Alkaline Phosphatase 79 67 64 40-136 U/L Myoglobin 25.8 10.0-92.0 NG/ML Troponin I < 0.30 <0.30 NG/ML Total Protein 7.4 6.5 6.2 L 6.4-8.2 GM/DL Albumin 4.7 H 4.1 4.0 3.2-4.5 GM/DL Lipase 80 H 8-78 U/L Serum Alcohol 151 H <10 MG/DL Triglycerides Level 54 <150 MG/DL Cholesterol Level 121 < 200 MG/DL LDL Cholesterol Direct 57 1-129 MG/DL VLDL Cholesterol 11 5-40 MG/DL HDL Cholesterol 50 40-60 MG/DL Hepatitis A IgM Antibody Non-Reactive Non-Reactive Hepatitis B Surface Antigen Non-Reactive Non-Reactive Hepatitis B Core IgM Antibody Non-Reactive Non-Reactive Hepatitis C Antibody Non-Reactive Non-Reactive Radiology Reviewed Chest Xray showed no acute cardiopulmonary abnormalities. Discharge Instructions to patient/family Please see electronic discharge instructions given to patient. Discharge Medications Reviewed and agree with Discharge Medication list on patient's Discharge Instruction sheet Clinical Quality Measures Admission Status Admission Dx Acute Pancreatitis Admission Status: Observation Reason for Inpatient Admission: Acute Pancreatitis AMI/AHF: ASA po Prior to arrival: No DVT/VTE Risk/Contraindication: Risk Factor Score Per Nursin RFS Level Per Nursing on Admit: 1=Low/No VTE PPX CLAUDETTE JESSICA MD 11/13/17 1654: Discharge Summary-Simple/Stand Discharge Physical Examination Allergies: Coded Allergies: No Known Drug Allergies (Unverified , 08/02/08) Supervisory-Addendum Brief Supervisory Addendum Patient seen and examined by me along with MS3 Linda Bonds, agree with documentation. LINDA BONDS MEDICAL STUDENT Nov 12, 2017 11:45 CLAUDETTE JESSICA MD Nov 13, 2017 16:54
[2017-11-12 11:56] VITALS: BP 131/84
[2017-11-12 12:15] VITALS: BP 131/84
--- NOTE | 2017-11-25 09:40 | Physician Query Clarification ---
PQ-Conflicting Diagnosis Admission/Discharge Admission Date: Nov 10, 2017 at 16:20 Discharge Date: Nov 12, 2017 at 12:15 The medical record reflects the following clinical scenario: History/Risk Factors: alcohol dependence Clinical Findings: chest pain,weakness,nausea, chills Treatment: IV Thiamine Question: Do you agree with the impression of the Alcohol Dependence with withdrawal per ED record, Dr Gaming? Please document a response below. PHYSICIAN RESPONSE Do you agree w/Consulting Dx?: Other,explanation/clincal findings Explanation of clincal finding Agree with alcohol dependence, but no signs of withdrawal. In responding to this query, please exercise your independent professional judgment. The purpose of this communication is to more accurately reflect the complexity of your patients condition. The fact that a question is asked does not imply that any particular answer is desired or expected. Thank you for your timely response to this clarification. Requestors name: [ ] Phone # [ ] THIS PHYSICIAN QUERY FORM IS A PERMANENT PART OF THE MEDICAL RECORD CHIRAG GARCIA Nov 25, 2017 09:40 CLAUDETTE JESSICA MD Nov 26, 2017 11:03
== END 2017-11-12 12:15 | disposition home or self-care (01) | DRG 440 ==
LOC: EDUNIT# 13:49 → ER 13:50 → 4TH 16:20
PROVIDERS: ADMIT Family Medicine; ATTEND Family Medicine
DX: K85.20 Alcohol induced acute pancreatitis without necrosis or infection (principal); F10.20 Alcohol dependence, uncomplicated; F17.210 Nicotine dependence, cigarettes, uncomplicated; Z87.442 Personal history of urinary calculi
CPT/HCPCS: 36415; 71046; 80053; 80061; 80074; 80320; 83690; 83735; 83874; 84484; 85025; 85027; 85610; 85730; 93005; 93041; 96374